=== PATIENT | female | born 1960 | race Caucasian/White ===

== ENCOUNTER 2019-02-15 12:04 | Emergency (ER) | payer OTHER, MEDICAID, SELFPAY ==
[2019-02-15 13:09] VITALS: BP 133/86; PULSE 96; RESP 18; TEMP 36.7; O2SAT 96
--- NOTE | 2019-02-15 13:37 | ED.URI ---
HPI - URI/Sore Throat <MORRO Hernandez - Last Filed: 02/15/19 22:13> General Chief Complaint: Upper Respiratory Symptoms Stated Complaint: left ear feels like the ear drum is blown, congest Time Seen by Provider: 02/15/19 13:32 Source: patient Mode of arrival: ambulatory Limitations: no limitations History of Present Illness HPI Narrative: A 58-year-old female with a history of hypertension is a nonsmoker for complaint of having sinus pain over the last 10 days with nasal congestion. She states she started out with having cold-like symptoms and her pain into her nasal area and congestion has worsened over this timeframe. Yesterday she reports she started having left ear pain and also felt some popping to her left ear. She denies any drainage to the left ear. She does not report having a recent fever. She is tolerating p.o. intake well. pain into her sinus area radiates down into her upper jaw. No other concerns or complaints at this time frame. MD Complaint: nasal congestion, sinus pain and other Related Data Home Medications Medication Instructions Recorded Confirmed albuterol sulfate [ProAir HFA] 1 puff INHALATION PRN PRN 02/15/19 02/15/19 amlodipine 10 mg PO DAILY 02/15/19 02/15/19 atorvastatin 20 mg PO DAILY 02/15/19 02/15/19 duloxetine 60 mg PO DAILY 02/15/19 02/15/19 lisinopril 40 mg PO DAILY 02/15/19 02/15/19 omeprazole 20 mg PO DAILY 02/15/19 02/15/19 ondansetron 4 mg PO BID PRN 02/15/19 02/15/19 Previous Rx's Medication Instructions Recorded amoxicillin-pot clavulanate 1 tab PO BID #14 tab 02/15/19 [Augmentin] hydrocodone-acetaminophen [[place]] 1 tab PO Q4-6H PRN #6 tab 02/15/19 Allergies Allergy/AdvReac Type Severity Reaction Status Date / Time Sulfa (Sulfonamide Allergy Intermediate Hives Verified 02/15/19 13:12 Antibiotics) Review of Systems <MORRO Hernandez - Last Filed: 02/15/19 22:13> Constitutional Denies chills, Denies fever(s), Denies lethargy and Denies weakness Eyes Denies change in vision, Denies eye discharge, Denies irritation and Denies loss of vision ENT Ears, Nose, Mouth, and Throat: Reports otalgia, Reports sinus pain and Reports sinus pressure Cardiovascular Denies chest pain, Denies irregular heart rhythm, Denies lightheadedness, Denies palpitations, Denies dyspnea, Denies dyspnea on exertion and Denies orthopnea Respiratory Denies cough, Denies dyspnea, Denies dyspnea on exertion and Denies wheezing Gastrointestinal Gastrointestinal: Denies abdominal pain, Denies change in bowel habits, Denies diarrhea, Denies nausea and Denies vomiting Genitourinary Denies hematuria, Denies flank pain, Denies urinary incontinence and Denies urinary urgency Integumentary/Breasts Denies pruritus, Denies erythema, Denies rash and Denies wounds Neurologic Denies loss of vision and Denies weakness Endocrine Denies palpitations Hematologic/Lymphatic Denies easy bruising Allergic/Immunologic Denies wheezing PFSH <MORRO Hernandez - Last Filed: 02/15/19 22:13> Social History Smoking Status: Never smoker Social History Smoking Status: Never smoker Exam <MORRO Hernandez - Last Filed: 02/15/19 22:13> Initial Vital Signs Initial Vital Signs: Vital Signs Temperature 98.1 F 02/15/19 13:09 Pulse Rate 96 H 02/15/19 13:09 Respiratory Rate 18 02/15/19 13:09 Blood Pressure 133/86 02/15/19 13:09 Pulse Oximetry 96 02/15/19 13:09 Const General: cooperative and well developed Nutritional Appearance: well nourished Orientation: alert, awake, oriented x3 and not confused [facility] Ears: TM normal on the right, left TM abnormal and TM abnormal (Left tympanic membrane erythematous and bulging no tympanic rupture appreci) bulging, erythematous and with fluid behind the TM Mouth: oral mucosae normal and moist mucous membranes Throat: posterior oropharynx normal Eyes Conjunctivae: conjunctivae normal Sclera: sclerae normal Pupils: PERRL EOM: EOM intact bilaterally Resp Effort & Inspection: normal respiratory effort, able to speak in complete sentences, no respiratory distress and no use of accessory muscles Auscultation: clear to auscultation bilaterally, no rales, no rhonchi and no wheezes Cardio Rate: regular rate Rhythm: regular rhythm Heart Sounds: no click, no gallops, no murmurs and no rubs Pulses: normal peripheral pulses Skin General: no rashes or lesions noted, No jaundice and No petechiae Neuro General: alert, oriented x3, gait normal and no focal motor deficits Speech: speech normal <Alexandra Canada DO - Last Filed: 02/16/19 08:20> Initial Vital Signs Initial Vital Signs: Vital Signs Temperature 98.1 F 02/15/19 13:09 Pulse Rate 96 H 02/15/19 13:09 Respiratory Rate 18 02/15/19 13:09 Blood Pressure 133/86 02/15/19 13:09 Pulse Oximetry 96 02/15/19 13:09 Course <MORRO Hernandez - Last Filed: 02/15/19 22:13> Vital Signs - 8 hr 02/15/19 13:09 Temperature 98.1 F Pulse Rate 96 H Respiratory Rate 18 Blood Pressure 133/86 Pulse Oximetry 96 <Alexandra Canada DO - Last Filed: 02/16/19 08:20> Vital Signs - 8 hr 02/15/19 13:09 Temperature 98.1 F Pulse Rate 96 H Respiratory Rate 18 Blood Pressure 133/86 Pulse Oximetry 96 MDM - URI/Sore Throat <MORRO Hernandez - Last Filed: 02/15/19 22:13> MDM Narrative Medical decision making narrative: Signs and symptoms presents as sinusitis with left otitis media. She is placed on Augmentin. [id number] Tylenol or Motrin as needed for any discomfort. Patient requested some pain medication she is given a handful of [place] for breakthrough pain not covered by Tylenol or Motrin. Plenty of fluids. Saline irrigation nasal passages to help with congestion and also hot showers. Follow up with primary care provider next few days for re-evaluation. For any worsening symptoms return emergency room. Discharge Plan Departure Patient Disposition: Home Clinical Impression: Sinusitis Qualifiers: Sinusitis location: frontal Chronicity: acute Recurrence: non-recurrent Qualified Code(s): J01.10 - Acute frontal sinusitis, unspecified Otitis media Qualifiers: Otitis media type: suppurative Chronicity: acute Laterality: left Recurrence: non-recurrent Spontaneous tympanic membrane rupture: without spontaneous rupture Qualified Code(s): H66.002 - Acute suppurative otitis media without spontaneous rupture of ear drum, left ear Discharge Date/Time: 02/15/19 14:12 Interventions: ED Discharge Assessment Last Done: 02/15/19 14:12 Instructions: DI for Sinusitis Activity Restrictions/Additional Instructions: Signs and symptoms presents as sinusitis with left ear infection. You are prescribed a antibiotic called Augmentin use as directed. Use [id number] Tylenol or Motrin as needed for any discomfort. A small amount of [place] is prescribed for breakthrough pain not covered by Tylenol or Motrin use as directed. No driving while on the [place]. Plenty of fluids. Saline irrigation nasal passages to help with congestion and also hot showers. Follow up with primary care provider next few days for re-evaluation. For any worsening symptoms return emergency room. Prescriptions: New hydrocodone-acetaminophen [[place]] 5-325 mg tablet 1 tab PO Q4-6H PRN (Reason: pain) Qty: 6 RF: 0 amoxicillin-pot clavulanate [Augmentin] 875-125 mg tablet 1 tab PO BID Qty: 14 RF: 0 No Action atorvastatin 20 mg tablet 20 mg PO DAILY RF: 0 amlodipine 10 mg tablet 10 mg PO DAILY RF: 0 omeprazole 20 mg capsule,delayed release(DR/EC) 20 mg PO DAILY RF: 0 albuterol sulfate [ProAir HFA] 90 mcg/actuation HFA aerosol inhaler 1 puff Inhalation PRN PRN (Reason: Shortness Of Breath) RF: 0 lisinopril 40 mg tablet 40 mg PO DAILY RF: 0 ondansetron 4 mg tablet,disintegrating 4 mg PO BID PRN (Reason: Nausea) RF: 0 duloxetine 60 mg capsule,delayed release(DR/EC) 60 mg PO DAILY RF: 0 Referrals: Adam Mckeon MD [Primary Care Provider] - <Alexandra Canada DO - Last Filed: 02/16/19 08:20> Cosign ED Attending Cosignature Attestation: I was immediately available in the department for consultation. This documentation has been reviewed and I agree with assessment and plan. Supervised by Alexandra Canada DO
== END 2019-02-15 14:12 | disposition home or self-care (01) ==
PROVIDERS: Emergency Provider Nurse Practitioner Family; PCP Family Medicine
DX: J01.10 Acute frontal sinusitis, unspecified (principal); H66.002 Acute suppurative otitis media without spontaneous rupture of ear drum, left ear
CPT/HCPCS: 99282; 99283